=== PATIENT | male | born 1995 | race Two or more races ===

== ENCOUNTER 2022-10-11 20:32 | Inpatient (IN) | payer OTHER ==
[2022-10-11 22:15] VITALS: BMI 17.1
[2022-10-11] MEDS ORDERED: NALOXONE HCL (KLOXXADO) 8 MG SPRAY NS PRN (22:27)
[2022-10-11] MEDS ORDERED: guaiFENesin 600 MG TABLET.ER (FP) PO PRN (22:27)
[2022-10-11] MEDS ORDERED: MAGNESIUM HYDROX 2400MG/30ML ORAL SUSPENSION 30 ML CUP PO PRN (22:27)
[2022-10-11] MEDS ORDERED: BISMUTH SUBSALICYLATE 524 MG/30 ML PO PRN (22:27)
[2022-10-11] MEDS ORDERED: DICYCLOMINE HCL 10 MG CAPSULE PO PRN (22:27)
[2022-10-11] MEDS ORDERED: MAG HYDROX/AL HYDROX/SIMETH 30 ML UNIT-DOSE CUP PO PRN (22:27)
[2022-10-11] MEDS ORDERED: BENZONATATE 200 MG CAPSULE PO PRN (22:27)
[2022-10-11] MEDS ORDERED: BENZOCAINE/MENTHOL (CHLORASEPTIC ) LOZENGE MM PRN (22:27)
[2022-10-11] MEDS ORDERED: POLYETHYLENE GLYCOL (HEALTHYLAX) 3350 17 GM PACKET PO PRN (22:27)
[2022-10-11] MEDS ORDERED: IBUPROFEN 400 MG TABLET (FP) PO PRN (22:27)
[2022-10-11] MEDS ORDERED: LOPERAMIDE HCL 2 MG CAPSULE PO PRN (22:27)
[2022-10-11] MEDS ORDERED: IBUPROFEN 600 MG TABLET (FP) PO PRN (22:27)
[2022-10-11] MEDS ORDERED: METHOCARBAMOL 500 MG TABLET PO PRN (22:27)
[2022-10-11] MEDS ORDERED: NALOXONE HCL 0.4 MG/ML VIAL IM PRN (22:27)
[2022-10-11] MEDS ORDERED: hydrOXYzine PAMOATE 25 MG CAPSULE (FP) PO PRN ×2 (22:27→22:30)
[2022-10-11] MEDS ORDERED: ACETAMINOPHEN 325 MG TABLET (FP) PO PRN (22:27)
[2022-10-11] MEDS ORDERED: ONDANSETRON *ODT* 4 MG TABLET SL PRN (22:27)
[2022-10-11] MEDS ORDERED: hydrOXYzine PAMOATE 25 MG CAPSULE (FP) PO ONE ×2 (22:37→22:40)
[2022-10-12] MEDS ORDERED: PRENATAL VITAMINS W/ FOLIC ACID TABLET (FP) PO SCH (10:00)
[2022-10-12 13:24] VITALS: BP 150/90; PULSE 78; RESP 16; TEMP 97.3
[2022-10-12 14:07] LABS: HEMATOCRIT 44.1 % (35.4-49); HEMOGLOBIN 14.9 GM/dL (11.7-16.9); MCH 33.1 pg (25.7-33.7); MCHC 33.9 g/dl (32.0-35.9); MEAN CELL VOLUME 97.4 fl (80-96); MEAN PLT VOLUME 8.3 fl (7.5-11.1); PLATELET COUNT 287 10^3/uL (134-434); RBC 4.52 M/mm3 (4.00-5.60); RDW 12.4 % (11.9-15.9); WHITE BLOOD COUNT 6.5 K/mm3 (4.0-10.0)
[2022-10-12 15:31] LABS: POTASSIUM 4.3 mmol/L (3.5-5.1)
[2022-10-12 15:34] LABS: CALCIUM 8.7 mg/dL (8.5-10.1)
[2022-10-12 15:35] LABS: ALBUMIN 3.8 g/dl (3.4-5.0); BLOOD UREA NITROGEN 16.6 mg/dL (7-18)
[2022-10-12 15:37] LABS: CREATININE 0.9 mg/dL (0.55-1.3)
[2022-10-12 15:39] LABS: BILIRUBIN,TOTAL 0.5 mg/dL (0.2-1); TOT PROT 6.8 g/dl (6.4-8.2)
[2022-10-12] MEDS ORDERED: THIAMINE HCL 100 MG TABLET (FP) PO SCH (22:00)
[2022-10-12] MEDS ORDERED: MELATONIN 5 MG TABLETS PO SCH (22:00)
== END 2022-10-12 11:13 | disposition home or self-care (01) | DRG 773 ==
LOC: YASAS 20:32 → Y3N 22:55
PROVIDERS: ADMIT Allergy & Immunology; ATTEND Allergy & Immunology
PROC: HZ2ZZZZ Detoxification Services for Substance Abuse Treatment (ICD-10-PCS; principal; 2022-10-11)
DX: F10.230 Alcohol dependence with withdrawal, uncomplicated (principal); F11.20 Opioid dependence, uncomplicated; F14.20 Cocaine dependence, uncomplicated; F12.20 Cannabis dependence, uncomplicated; F17.210 Nicotine dependence, cigarettes, uncomplicated; F19.94 Other psychoactive substance use, unspecified with psychoactive substance-induced mood disorder; Z28.310 Unvaccinated for COVID-19; Z86.19 Personal history of other infectious and parasitic diseases; Z56.0 Unemployment, unspecified
CPT/HCPCS: 36415; 80053; 85027; 86593; 86780; 87635; 87811